=== PATIENT | male | born 1975 | race Caucasian/White ===

== ENCOUNTER 2018-11-08 13:33 | Observation (INO) | payer BC ==
[2018-11-08] MEDS ORDERED: Diltiazem 25 MG/5 ML SDV IVPUSH ONE ×2 (13:41→15:46)
[2018-11-08] MEDS ORDERED: Sodium Chloride 0.9% 1,000 ML IV ONE ×2 (13:41→14:49)
--- NOTE | 2018-11-08 13:45 | EDM.PDOC ---
ED HPI GENERAL MEDICAL PROBLEM - General Chief Complaint: Cardiovascular Problem Stated Complaint: CHEST PAIN Time Seen by Provider: 11/08/18 13:37 Source of Information: Reports: Patient History Limitations: Reports: No Limitations - History of Present Illness INITIAL COMMENTS - FREE TEXT/NARRATIVE: HISTORY AND PHYSICAL: History of present illness: Patient is a 43-year-old male who presents to the emergency room today with complaints of palpitations which started approximately one hour prior to arrival. He states he does have a history of atrial fibrillation and does recall one time that he had to go to the emergency room for IV medication to convert this. He does complain of the palpitation sensation in his chest which she is describing as "I can feel it" but does not state that it is painful. Patient denies any fever, chills, headache, change in vision, syncope or near syncope. Denies any back pain, shortness of breath or cough. Denies any abdominal pain, nausea, vomiting, diarrhea, constipation or dysuria. Has not noted any blood in urine or stool. Patient has been eating and drinking appropriately. Does drink alcohol occasionally but denies any drug or alcohol abuse. Review of systems: As per history of present illness and below otherwise all systems reviewed and negative. Past medical history: As per history of present illness and as reviewed below otherwise noncontributory. Surgical history: As per history of present illness and as reviewed below otherwise noncontributory. Social history: See social history for further information Family history: As per history of present illness and as reviewed below otherwise noncontributory. Physical exam: General: Well-developed and well-nourished 43-year-old male. Alert and oriented. Nontoxic appearing and in no acute distress. HEENT: Atraumatic, normocephalic, pupils equal and reactive bilaterally, negative for conjunctival pallor or scleral icterus, mucous membranes moist, trachea midline. No drooling or trismus noted. No meningeal signs. No hot potato voice noted. Lungs: Clear to auscultation, breath sounds equal bilaterally, chest nontender. Heart: Irregular rate and rhythm, rate of 154. Abdomen: Soft, nondistended, nontender. Negative for masses. Negative for costovertebral tenderness. Pelvis: Stable nontender. Genitourinary: Deferred. Rectal: Deferred. Skin: Intact, warm, dry. No lesions or rashes noted. Extremities: Atraumatic, moves all extremities per self without difficulty or deficits, negative for cords or calf pain. Neurovascular unremarkable. Neuro: Awake, alert, oriented. Cranial nerves II through XII unremarkable. Cerebellum unremarkable. Motor and sensory unremarkable throughout. Exam nonfocal. Notes: Patient's lab work is unremarkable. Pulse rate went from 150 down to 80s to 90. When he is talking or moving pulse rate does go up to 100-110's. He is asymptomatic. Patient's pulse rate remains 90s to 110's after medications and fluids. We'll give a second dose of diltiazem and admit for observation on telemetry. Dr. Corona was consult on this case and he is agreeable. Patient is aware and agreeable to plan of care. He remains pain-free. Diagnostics: CBC, CMP, troponin, EKG, chest x-ray Therapeutics: 20 mg diltiazem, IV fluid, Metoprolol Prescription: None Impression: Atrial Fibrillation Plan: Observation to Med/Surg with telemetry Definitive disposition and diagnosis as appropriate pending reevaluation and review of above. - Related Data Allergies Allergy/AdvReac Type Severity Reaction Status Date / Time No Known Allergies Allergy Verified 11/08/18 13:35 Home Meds: Home Meds Aspirin 81 mg PO DAILY 11/08/18 [History] Febuxostat 40 mg PO DAILY 11/08/18 [History] Metoprolol Succinate 100 mg PO DAILY 11/08/18 [History] Spironolactone 50 mg PO DAILY 11/08/18 [History] amLODIPine [Norvasc] 5 mg PO DAILY 11/08/18 [History] Past Medical History Cardiovascular History: Reports: Afib, Hypertension - Infectious Disease History Infectious Disease History: Reports: Chicken Pox Social & Family History - Family History Family Medical History: Noncontributory - Tobacco Use Smoking Status *Q: Current Every Day Smoker Years of Tobacco use: 10 Packs/Tins Daily: 0.2 - Caffeine Use Caffeine Use: Reports: Coffee - Recreational Drug Use Recreational Drug Use: No ED ROS GENERAL - Review of Systems Review Of Systems: ROS reveals no pertinent complaints other than HPI. ED EXAM, GENERAL - Physical Exam Exam: See Below (See dictation) Course - Vital Signs Last Recorded V/S: Last Vital Signs Temp 97.8 F 11/08/18 13:38 Pulse 92 11/08/18 15:21 Resp 18 11/08/18 14:03 BP 128/94 H 11/08/18 14:54 Pulse Ox 98 11/08/18 14:03 - Orders/Labs/Meds Orders: Active Orders 24 hr Category Date Time Status EKG Documentation Completion [RC] STAT Care 11/08/18 13:37 Active EKG Documentation Completion [RC] STAT Care 11/08/18 14:03 Active Sodium Chloride 0.9% [Normal Saline] 1,000 ml Med 11/08/18 14:49 Active IV STAT Medication Orders Sodium Chloride (Normal Saline) 1,000 mls @ 999 mls/hr IV STAT ONE Stop: 11/08/18 15:49 Last Admin: 11/08/18 14:53 Dose: 999 mls/hr Labs: Laboratory Tests 11/08/18 11/08/18 11/08/18 Range/Units 13:44 13:44 13:45 WBC 9.11 (4.0-11.0) K/uL RBC 4.46 L (4.50-5.90) M/uL Hgb 13.9 (13.0-17.0) g/dL Hct 41.3 (38.0-50.0) % MCV 92.6 (80.0-98.0) fL MCH 31.2 (27.0-32.0) pg MCHC 33.7 (31.0-37.0) g/dL RDW Std Deviation 47.7 (28.0-62.0) fl RDW Coeff of Rena 14 (11.0-15.0) % Plt Count 296 (150-400) K/uL MPV 10.00 (7.40-12.00) fL Neut % (Auto) 60.9 (48.0-80.0) % Lymph % (Auto) 26.2 (16.0-40.0) % [place] % (Auto) 9.5 (0.0-15.0) % Eos % (Auto) 2.9 (0.0-7.0) % Baso % (Auto) 0.5 (0.0-1.5) % Neut # (Auto) 5.5 (1.4-5.7) K/uL Lymph # (Auto) 2.4 (0.6-2.4) K/uL [place] # (Auto) 0.9 H (0.0-0.8) K/uL Eos # (Auto) 0.3 (0.0-0.7) K/uL Baso # (Auto) 0.1 (0.0-0.1) K/uL Nucleated RBC % 0.0 /100WBC Nucleated RBCs # 0 K/uL Sodium 143 (136-148) mmol/L Potassium 3.7 (3.5-5.1) mmol/L Chloride 106 (98-107) mmol/L Carbon Dioxide 26.5 (21.0-32.0) mmol/L BUN 12 (7.0-18.0) mg/dL Creatinine 1.0 (0.8-1.3) mg/dL Est Cr Clr Drug Dosing 99.36 mL/min Estimated GFR (MDRD) > 60.0 ml/min Glucose 103 (74-106) mg/dL Calcium 9.1 (8.5-10.1) mg/dL Total Bilirubin 0.3 (0.2-1.0) mg/dL AST 25 (15-37) IU/L ALT 53 (14-63) IU/L Alkaline Phosphatase 80 (46-116) U/L Troponin I < 0.050 (0.000-0.056) ng/mL Total Protein 7.5 (6.4-8.2) g/dL Albumin 4.0 (3.4-5.0) g/dL Globulin 3.5 (2.6-4.0) g/dL Albumin/Globulin Ratio 1.1 (0.9-1.6) Urine Color YELLOW Urine Appearance CLEAR Urine pH 7.0 (5.0-8.0) Ur Specific [place] <= 1.005 (1.001-1.035) Urine Protein NEGATIVE (NEGATIVE) mg/dL Urine Glucose (UA) NEGATIVE (NEGATIVE) mg/dL Urine Ketones NEGATIVE (NEGATIVE) mg/dL Urine Occult Blood TRACE-INTACT H (NEGATIVE) Urine Nitrite NEGATIVE (NEGATIVE) Urine Bilirubin NEGATIVE (NEGATIVE) Urine Urobilinogen 0.2 (<2.0) EU/dL Ur Leukocyte Esterase NEGATIVE (NEGATIVE) Urine RBC 0-1 (0-2/HPF) Urine WBC 0-1 (0-5/HPF) Ur Epithelial Cells NOT SEEN (NONE-FEW) Amorphous Sediment RARE (NEGATIVE) Urine Bacteria RARE (NEGATIVE) Urine Mucus RARE (NONE-MOD) Meds: Medications Generic Name Dose Route Start Last Admin Trade Name Freq PRN Reason Stop Dose Admin Sodium Chloride 1,000 mls @ 999 mls/hr 11/08/18 14:49 11/08/18 14:53 Normal Saline IV 11/08/18 15:49 999 mls/hr STAT ONE Administration Discontinued Medications Generic Name Dose Route Start Last Admin Trade Name Freq PRN Reason Stop Dose Admin Diltiazem HCl 20 mg 11/08/18 13:41 11/08/18 13:49 Diltiazem IVPUSH 11/08/18 13:42 20 mg ONETIME ONE Administration Sodium Chloride 1,000 mls @ 999 mls/hr 11/08/18 13:41 11/08/18 13:48 Normal Saline IV 11/08/18 14:41 999 mls/hr STAT ONE Administration Metoprolol Succinate 50 mg 11/08/18 14:48 11/08/18 14:54 Toprol Xl PO 11/08/18 14:49 50 mg ONETIME ONE Administration Departure - Departure Time of Disposition: 15:44 Disposition: Refer to Observation Clinical Impression: Atrial fibrillation Qualifiers: Atrial fibrillation type: unspecified Qualified Code(s): I48.91 - Unspecified atrial fibrillation Referrals: PCP,Unknown [Primary Care Provider] - Forms: ED Department Discharge - My Orders Last 24 Hours: My Active Orders 11/08/18 13:37 EKG Documentation Completion [RC] STAT 11/08/18 14:03 EKG Documentation Completion [RC] STAT 11/08/18 14:49 Sodium Chloride 0.9% [Normal Saline] 1,000 ml IV STAT - Assessment/Plan Last 24 Hours: My Active Orders 11/08/18 13:37 EKG Documentation Completion [RC] STAT 11/08/18 14:03 EKG Documentation Completion [RC] STAT 11/08/18 14:49 Sodium Chloride 0.9% [Normal Saline] 1,000 ml IV STAT
[2018-11-08 14:22] LABS: BLOOD UREA NITROGEN,BUN 12 mg/dL (7.0-18.0); CARBON DIOXIDE,CO2 26.5 mmol/L (21.0-32.0); CHLORIDE,CL 106 mmol/L (98-107); GLUCOSE RANDOM 103 mg/dL (74-106); POTASSIUM,K 3.7 mmol/L (3.5-5.1); SODIUM,NA 143 mmol/L (136-148)
--- NOTE | 2018-11-08 14:34 | CR ---
INDICATION: CHEST PAIN TECHNIQUE: Chest 1 view. COMPARISON: None. FINDINGS: Cardiovascular and mediastinum: Heart size and vasculature are normal in caliber and appearance. Mediastinum is within normal limits. Lungs and pleural space: Lungs are clear. No sign of infiltrate or mass. No sign of pleural effusion. No pneumothorax. Bones and soft tissues: No significant findings. IMPRESSION: Unremarkable chest. Dictated by: Trenton Ghosh MD @ 11/08/2018 14:32:59 (Electronically Signed)
[2018-11-08] MEDS ORDERED: Metoprolol Succinate 50 MG Tab.ER PO ONE (14:48)
--- NOTE | 2018-11-08 16:31 | PCM.HP.2 ---
<Lenora Angulo - Last Filed: 11/08/18 17:43> H&P History of Present Illness - General Date of Service: 11/08/18 Admit Problem/Dx: Admission Diagnosis/Problem Admission Diagnosis/Problem Atrial fibrillation - History of Present Illness Initial Comments - Free Text/Narative: The patient is a 43-year-old male who presented to the ER today with palpitations. He reports he has a history of A. fib. He was first diagnosed with A. fib in 2018. He reports he went to the ER, they gave him a dose of something, and then he returned to normal sinus rhythm. The symptoms started today when he was at work. He was sitting, running machine, not doing anything physical. He denies fever/chills, headache, vision changes, chest pain, shortness of breath, abdominal pain, nausea, vomiting, recent illness, drug use , recent alcohol use and has not changed his caffeine consumption. he reports he was 1 large cup of coffee in the morning. He reports he's taking his medications as prescribed, hasn't missed any doses. He follows with the PCP in [place]. In the ER, labs showed no leukocytosis, anemia, CMP was within normal limits and initial negative troponin. His UA showed no signs of infection. A chest x- ray showed no acute cardiopulmonary process. EKG showed A. fib with a heart rate of 154. Repeat EKG after medication administration showed A. fib with heart rate of 99. He was given 2 doses of diltiazem IV in the ER and one dose of oral metoprolol. He was started on IV fluids. - Related Data Allergies/Adverse Reactions: Allergies Allergy/AdvReac Type Severity Reaction Status Date / Time No Known Allergies Allergy Verified 11/08/18 16:23 Home Medications: Home Meds Aspirin 81 mg PO DAILY 11/08/18 [History] Febuxostat 40 mg PO DAILY 11/08/18 [History] Metoprolol Succinate 100 mg PO DAILY 11/08/18 [History] Spironolactone 50 mg PO DAILY 11/08/18 [History] amLODIPine [Norvasc] 5 mg PO DAILY 11/08/18 [History] Past Medical History HEENT History: Reports: None Cardiovascular History: Reports: Afib, Hypertension Respiratory History: Reports: None Gastrointestinal History: Reports: None Genitourinary History: Reports: None Musculoskeletal History: Reports: Gout Neurological History: Reports: None Psychiatric History: Reports: None Endocrine/Metabolic History: Reports: None Hematologic History: Reports: None Immunologic History: Reports: None Oncologic (Cancer) History: Reports: None Dermatologic History: Reports: None - Infectious Disease History Infectious Disease History: Reports: Chicken Pox Social & Family History - Family History Family Medical History: Noncontributory - Tobacco Use Smoking Status *Q: Current Every Day Smoker Years of Tobacco use: 10 Packs/Tins Daily: 0.2 - Caffeine Use Caffeine Use: Reports: Coffee - Recreational Drug Use Recreational Drug Use: No H&P Review of Systems - Review of Systems: Review Of Systems: See Below General: Reports: No Symptoms HEENT: Reports: No Symptoms Pulmonary: Reports: No Symptoms Cardiovascular: Reports: Palpitations. Denies: Chest Pain, Syncope, Blood Pressure Problem Gastrointestinal: Reports: No Symptoms Genitourinary: Reports: No Symptoms Musculoskeletal: Reports: No Symptoms Skin: Reports: No Symptoms Psychiatric: Reports: No Symptoms Neurological: Reports: No Symptoms Hematologic/Lymphatic: Reports: No Symptoms Immunologic: Reports: No Symptoms Exam - Exam Exam: See Below - Vital Signs Vital Signs: Last Vital Signs Temp 97.8 F 11/08/18 13:38 Pulse 102 H 11/08/18 15:55 Resp 16 11/08/18 15:55 BP 133/87 11/08/18 15:55 Pulse Ox 98 11/08/18 15:55 Weight: 90.718 kg - Exam General: Alert, Oriented, Cooperative HEENT: Conjunctiva Clear, EOMI, Mucosa Moist & [place], Posterior Pharynx Clear, Pupils Equal, Pupils Reactive Neck: Supple, Trachea Midline Lungs: Clear to Auscultation, Normal Respiratory Effort Cardiovascular: Irregular Rhythm GI/Abdominal Exam: Normal Bowel Sounds, Soft, Non-Tender, No Distention Extremities: No Pedal Edema Skin: Warm, Dry, Intact Neuro Extensive - Mental Status: Alert, Oriented x3 Psychiatric: Alert, Normal Affect, Normal Mood - Patient Data Lab Results Last 24 hrs: Laboratory Results - last 24 hr 11/08/18 11/08/18 11/08/18 Range/Units 13:44 13:44 13:45 WBC 9.11 (4.0-11.0) K/uL RBC 4.46 L (4.50-5.90) M/uL Hgb 13.9 (13.0-17.0) g/dL Hct 41.3 (38.0-50.0) % MCV 92.6 (80.0-98.0) fL MCH 31.2 (27.0-32.0) pg MCHC 33.7 (31.0-37.0) g/dL RDW Std Deviation 47.7 (28.0-62.0) fl RDW Coeff of Rena 14 (11.0-15.0) % Plt Count 296 (150-400) K/uL MPV 10.00 (7.40-12.00) fL Neut % (Auto) 60.9 (48.0-80.0) % Lymph % (Auto) 26.2 (16.0-40.0) % [place] % (Auto) 9.5 (0.0-15.0) % Eos % (Auto) 2.9 (0.0-7.0) % Baso % (Auto) 0.5 (0.0-1.5) % Neut # (Auto) 5.5 (1.4-5.7) K/uL Lymph # (Auto) 2.4 (0.6-2.4) K/uL [place] # (Auto) 0.9 H (0.0-0.8) K/uL Eos # (Auto) 0.3 (0.0-0.7) K/uL Baso # (Auto) 0.1 (0.0-0.1) K/uL Nucleated RBC % 0.0 /100WBC Nucleated RBCs # 0 K/uL Sodium 143 (136-148) mmol/L Potassium 3.7 (3.5-5.1) mmol/L Chloride 106 (98-107) mmol/L Carbon Dioxide 26.5 (21.0-32.0) mmol/L BUN 12 (7.0-18.0) mg/dL Creatinine 1.0 (0.8-1.3) mg/dL Est Cr Clr Drug Dosing 99.36 mL/min Estimated GFR (MDRD) > 60.0 ml/min Glucose 103 (74-106) mg/dL Calcium 9.1 (8.5-10.1) mg/dL Total Bilirubin 0.3 (0.2-1.0) mg/dL AST 25 (15-37) IU/L ALT 53 (14-63) IU/L Alkaline Phosphatase 80 (46-116) U/L Troponin I < 0.050 (0.000-0.056) ng/mL Total Protein 7.5 (6.4-8.2) g/dL Albumin 4.0 (3.4-5.0) g/dL Globulin 3.5 (2.6-4.0) g/dL Albumin/Globulin Ratio 1.1 (0.9-1.6) Urine Color YELLOW Urine Appearance CLEAR Urine pH 7.0 (5.0-8.0) Ur Specific [place] <= 1.005 (1.001-1.035) Urine Protein NEGATIVE (NEGATIVE) mg/dL Urine Glucose (UA) NEGATIVE (NEGATIVE) mg/dL Urine Ketones NEGATIVE (NEGATIVE) mg/dL Urine Occult Blood TRACE-INTACT H (NEGATIVE) Urine Nitrite NEGATIVE (NEGATIVE) Urine Bilirubin NEGATIVE (NEGATIVE) Urine Urobilinogen 0.2 (<2.0) EU/dL Ur Leukocyte Esterase NEGATIVE (NEGATIVE) Urine RBC 0-1 (0-2/HPF) Urine WBC 0-1 (0-5/HPF) Ur Epithelial Cells NOT SEEN (NONE-FEW) Amorphous Sediment RARE (NEGATIVE) Urine Bacteria RARE (NEGATIVE) Urine Mucus RARE (NONE-MOD) Result Diagrams: 11/08/18 13:44 11/08/18 13:44 - Problem List (1) HTN (hypertension) SNOMED Code(s): 42075245 ICD Code: I10 - ESSENTIAL (PRIMARY) HYPERTENSION Status: Chronic Current Visit: Yes (2) Gout SNOMED Code(s): 60692367 ICD Code: M10.9 - GOUT, UNSPECIFIED Status: Chronic Current Visit: Yes (3) Atrial fibrillation SNOMED Code(s): 09179390 ICD Code: I48.91 - UNSPECIFIED ATRIAL FIBRILLATION Status: Acute Current Visit: Yes Qualifiers: Atrial fibrillation type: unspecified Qualified Code(s): I48.91 - Unspecified atrial fibrillation Problem List Initiated/Reviewed/Updated: Yes Orders Last 24hrs: Active Orders 24 hr Category Date Time Status Admission Status [Patient Status] [ADT] Stat ADT 11/08/18 15:47 Active Telemetry Monitoring [Cardiac Monitoring] [RC] . Care 11/08/18 16:25 Ordered DIRECTED Assessment/Plan Comment:: 1. Admit for observation 2. Code status- Full 3. Vitals per routine 4. I/Os per routine 5. Diet- Regular 6. DVT prophylaxis with Eliquis 7. Paroxysmal Afib- will continue on home metoprolol dose, 100 bid, consider adjusting dose or adding new medication tomorrow if rate not under control. Will monitor on telemetry and trend troponins. Will have prn Diltiazem for HR > 120. CHADSVASC of 1, recommended anticoagulation with something stronger than aspirin. Discussed warfarin vs new agent like Eliquis. Discussed risks/ benefits of each. Patient would like to try Eliquis. 8. Chronic conditions- HTN/gout- continue home meds. <Reyes Corona - Last Filed: 11/08/18 17:46> H&P History of Present Illness - General Admit Problem/Dx: Admission Diagnosis/Problem Admission Diagnosis/Problem Atrial fibrillation I have seen and examined the patient independently of veterinary medical officer, Dr. Kev DO. I have reviewed and agree with the plan of care as outlined for this patient by her. I have discussed the case with her. Please see orders. Exam - Vital Signs Vital Signs: Last Vital Signs Temp 36.4 C 11/08/18 16:35 Pulse 87 11/08/18 16:35 Resp 16 11/08/18 16:35 BP 143/93 H 11/08/18 16:35 Pulse Ox 99 11/08/18 16:35 - Patient Data Lab Results Last 24 hrs: Laboratory Results - last 24 hr 11/08/18 11/08/18 11/08/18 Range/Units 13:44 13:44 13:45 WBC 9.11 (4.0-11.0) K/uL RBC 4.46 L (4.50-5.90) M/uL Hgb 13.9 (13.0-17.0) g/dL Hct 41.3 (38.0-50.0) % MCV 92.6 (80.0-98.0) fL MCH 31.2 (27.0-32.0) pg MCHC 33.7 (31.0-37.0) g/dL RDW Std Deviation 47.7 (28.0-62.0) fl RDW Coeff of [place] 14 (11.0-15.0) % Plt Count 296 (150-400) K/uL MPV 10.00 (7.40-12.00) fL Neut % (Auto) 60.9 (48.0-80.0) % Lymph % (Auto) 26.2 (16.0-40.0) % [place] % (Auto) 9.5 (0.0-15.0) % Eos % (Auto) 2.9 (0.0-7.0) % Baso % (Auto) 0.5 (0.0-1.5) % Neut # (Auto) 5.5 (1.4-5.7) K/uL Lymph # (Auto) 2.4 (0.6-2.4) K/uL [place] # (Auto) 0.9 H (0.0-0.8) K/uL Eos # (Auto) 0.3 (0.0-0.7) K/uL Baso # (Auto) 0.1 (0.0-0.1) K/uL Nucleated RBC % 0.0 /100WBC Nucleated RBCs # 0 K/uL Sodium 143 (136-148) mmol/L Potassium 3.7 (3.5-5.1) mmol/L Chloride 106 (98-107) mmol/L Carbon Dioxide 26.5 (21.0-32.0) mmol/L BUN 12 (7.0-18.0) mg/dL Creatinine 1.0 (0.8-1.3) mg/dL Est Cr Clr Drug Dosing 99.36 mL/min Estimated GFR (MDRD) > 60.0 ml/min Glucose 103 (74-106) mg/dL Calcium 9.1 (8.5-10.1) mg/dL Total Bilirubin 0.3 (0.2-1.0) mg/dL AST 25 (15-37) IU/L ALT 53 (14-63) IU/L Alkaline Phosphatase 80 (46-116) U/L Troponin I < 0.050 (0.000-0.056) ng/mL Total Protein 7.5 (6.4-8.2) g/dL Albumin 4.0 (3.4-5.0) g/dL Globulin 3.5 (2.6-4.0) g/dL Albumin/Globulin Ratio 1.1 (0.9-1.6) Urine Color YELLOW Urine Appearance CLEAR Urine pH 7.0 (5.0-8.0) Ur Specific [place] <= 1.005 (1.001-1.035) Urine Protein NEGATIVE (NEGATIVE) mg/dL Urine Glucose (UA) NEGATIVE (NEGATIVE) mg/dL Urine Ketones NEGATIVE (NEGATIVE) mg/dL Urine Occult Blood TRACE-INTACT H (NEGATIVE) Urine Nitrite NEGATIVE (NEGATIVE) Urine Bilirubin NEGATIVE (NEGATIVE) Urine Urobilinogen 0.2 (<2.0) EU/dL Ur Leukocyte Esterase NEGATIVE (NEGATIVE) Urine RBC 0-1 (0-2/HPF) Urine WBC 0-1 (0-5/HPF) Ur Epithelial Cells NOT SEEN (NONE-FEW) Amorphous Sediment RARE (NEGATIVE) Urine Bacteria RARE (NEGATIVE) Urine Mucus RARE (NONE-MOD) Result Diagrams: 11/08/18 13:44 11/08/18 13:44 Orders Last 24hrs: Active Orders 24 hr Category Date Time Status Admission Status [Patient Status] [ADT] Stat ADT 11/08/18 15:47 Active Cardiac Monitoring [RC] . DIRECTED Care 11/08/18 16:35 Active Intake and Output [RC] Q12H Care 11/08/18 16:35 Active Telemetry Monitoring [Cardiac Monitoring] [RC] . Care 11/08/18 16:25 Active DIRECTED Vital Signs [RC] Q4H Care 11/08/18 16:35 Active Heart Healthy Diet [DIET] Diet 11/09/18 Breakfast Active BASIC METABOLIC PANEL,BMP [CHEM] AM Lab 11/09/18 05:11 Ordered CBC WITH AUTO DIFF [HEME] AM Lab 11/09/18 05:11 Ordered TROPONIN I [CHEM] AM Lab 11/09/18 05:11 Ordered TROPONIN I [CHEM] Routine Lab 11/08/18 21:30 Ordered Acetaminophen [Tylenol] Med 11/08/18 16:35 Active 650 mg PO Q4H PRN Apixaban [Eliquis] Med 11/08/18 21:00 Active 5 mg PO BID Diltiazem Med 11/08/18 16:35 Active 20 mg IVPUSH Q4HR PRN Metoprolol Succinate [Toprol XL] Med 11/08/18 21:00 Active 100 mg PO BID Ondansetron [Zofran] Med 11/08/18 16:35 Active 4 mg IVPUSH Q4H PRN Patient's Own Medication [Ptom] Med 11/09/18 09:00 Active 1 each PO DAILY Spironolactone [Aldactone] Med 11/09/18 09:00 Active 50 mg PO DAILY amLODIPine [Norvasc] Med 11/09/18 09:00 Active 5 mg PO DAILY Resuscitation Status Routine Resus Stat 11/08/18 16:35 Ordered Medication Orders Acetaminophen (Tylenol) 650 mg PO Q4H PRN PRN Reason: Pain/Fever Amlodipine Besylate (Norvasc) 5 mg PO DAILY SANDIE Apixaban (Eliquis) 5 mg PO BID SANDIE Diltiazem HCl (Diltiazem) 20 mg IVPUSH Q4HR PRN PRN Reason: Arrhythmia Metoprolol Succinate (Toprol Xl) 100 mg PO BID SANDIE Ondansetron HCl (Zofran) 4 mg IVPUSH Q4H PRN PRN Reason: Nausea/Vomiting Febuxostat 40 Mg 1 each PO DAILY SANDIE Spironolactone (Aldactone) 50 mg PO DAILY SANDIE
[2018-11-08] MEDS ORDERED: Acetaminophen 325 MG Tab PO PRN (16:35)
[2018-11-08] MEDS ORDERED: Diltiazem 25 MG/5 ML SDV IVPUSH PRN (16:35)
[2018-11-08] MEDS ORDERED: Ondansetron 4 MG/2 ML SDV IVPUSH PRN (16:35)
[2018-11-08] MEDS: Metoprolol Succinate 100 MG Tab.ER PO SCH (20:40)
[2018-11-08] MEDS: Apixaban 5 MG Tab PO SCH (20:40)
[2018-11-09 06:54] LABS: BLOOD UREA NITROGEN,BUN 8 mg/dL (7.0-18.0); CARBON DIOXIDE,CO2 25.3 mmol/L (21.0-32.0); CHLORIDE,CL 107 mmol/L (98-107); GLUCOSE RANDOM 96 mg/dL (74-106); POTASSIUM,K 3.9 mmol/L (3.5-5.1); SODIUM,NA 142 mmol/L (136-148)
[2018-11-09] MEDS: Metoprolol Succinate 100 MG Tab.ER PO SCH (08:28)
[2018-11-09] MEDS: Apixaban 5 MG Tab PO SCH (08:29)
--- NOTE | 2018-11-09 08:55 | PCM.DCSUM1 ---
<Lenora Angulo - Last Filed: 11/09/18 08:55> Discharge Summary - Hospital Course Free Text/Narrative:: Admission Date: 11/08/18 Discharge Date: 11/09/18 Admission Diagnosis: 1. Afib 2. Chronic conditions- HTN, gout Discharge Diagnosis: 1. Afib- rate controlled/anticoagulated 2. Chronic conditions- HTN, gout Procedures: None Consults: None Hospital Course: The patient is a 43-year-old male who presented to the ER yesterday with palpitations. He had previous history of A. fib that converted with medication to sinus rhythm. In the ER, he was in A. fib with heart rate of 154. They ended up giving him 2 doses of IV Diltiazem and one dose of oral metoprolol. Further workup showed no leukocytosis, anemia, electrolyte derangements and initial negative troponin was negative. His UA showed no signs of infection. A chest x-ray showed no acute cardiopulmonary process. He was admitted to the medical surgical floor where he was monitored on telemetry and continued on his home dose metoprolol. He remained in A. fib but was rate controlled in the 70s and 80s. We had a discussion about anticoagulation as he was only on aspirin before. We discussed risks, benefits of warfarin versus a novel agent. The patient decided on Eliquis and he was started on the medication while admitted. He was continued on his home meds for his hypertension and gout. By day of discharge his symptoms had improved, his A. fib was rate controlled. He stated he felt fine going home. Disposition: Home Discharge Condition: vitals stable, tolerating oral diet, ambulating without difficulty, symptom improvement Discharge Instructions: heart healthy diet as tolerated, activity as tolerated, take medications as prescribed. Symptoms to report to physician include fever/ chills, chest pain, shortness of breath, palpitations, abdominal pain, erythema , drainage/discharge, or not improving as expected. Discharge Medications: Febuxostat 40 mg PO DAILY Metoprolol Succinate 100 mg PO DAILY Spironolactone 50 mg PO DAILY amLODIPine [Norvasc] 5 mg PO DAILY Apixaban [Eliquis] 5 mg PO BID Follow-up: PCP and cardiology - Discharge Data Discharge Date: 11/09/18 Discharge Disposition: Home, Self-Care 01 Condition: Fair - Referral to Home Health Primary Care Physician: PCP Unknown - Discharge Diagnosis/Problem(s) (1) HTN (hypertension) SNOMED Code(s): 34097367 ICD Code: I10 - ESSENTIAL (PRIMARY) HYPERTENSION Status: Chronic Current Visit: Yes (2) Gout SNOMED Code(s): 64488917 ICD Code: M10.9 - GOUT, UNSPECIFIED Status: Chronic Current Visit: Yes (3) Atrial fibrillation SNOMED Code(s): 66032914 ICD Code: I48.91 - UNSPECIFIED ATRIAL FIBRILLATION Status: Acute Current Visit: Yes Qualifiers: Atrial fibrillation type: unspecified Qualified Code(s): I48.91 - Unspecified atrial fibrillation - Patient Instructions Diet: Heart Healthy Diet Activity: As Tolerated Driving: May Drive Today Showering/Bathing: May Shower Notify Provider of: Fever, Increased Pain, Swelling and Redness, Drainage, Nausea and/or Vomiting Other/Special Instructions: Additional symptoms include chest pain, shortness of breath, palpitations, or abdominal pain. - Discharge Plan *PRESCRIPTION DRUG MONITORING PROGRAM REVIEWED*: No *COPY OF PRESCRIPTION DRUG MONITORING REPORT IN PATIENT [facility]: No Prescriptions/Med Rec: Apixaban [Eliquis] 5 mg PO BID 30 Days #60 tablet Home Medications: Home Meds Febuxostat 40 mg PO DAILY 11/08/18 [History] Metoprolol Succinate 100 mg PO DAILY 11/08/18 [History] Spironolactone 50 mg PO DAILY 11/08/18 [History] amLODIPine [Norvasc] 5 mg PO DAILY 11/08/18 [History] Apixaban [Eliquis] 5 mg PO BID 30 Days #60 tablet 11/09/18 [Rx] Patient Handouts: Apixaban oral tablets, Atrial Fibrillation, [id number] Referrals: Lonnie Smith MD [Physician] - 11/30/18 11:30 am Mckayla Perez MD [Resident] - 11/17/18 3:40 pm - Discharge Summary/Plan Comment DC Time >30 min.: No - Patient Data Vitals - Most Recent: Last Vital Signs Temp 97.7 F 11/09/18 07:37 Pulse 87 11/09/18 08:28 Resp 16 11/09/18 07:37 BP 134/96 H 11/09/18 08:30 Pulse Ox 97 11/09/18 07:37 Weight - Most Recent: 90.718 kg I&O - Last 24 hours: Intake & Output 11/08/18 11/09/18 11/09/18 22:59 06:59 14:59 Intake Total 900 Balance 900 Lab Results - Last 24 hrs: Laboratory Results - last 24 hr 11/08/18 11/08/18 11/08/18 Range/Units 13:44 13:44 13:45 WBC 9.11 (4.0-11.0) K/uL RBC 4.46 L (4.50-5.90) M/uL Hgb 13.9 (13.0-17.0) g/dL Hct 41.3 (38.0-50.0) % MCV 92.6 (80.0-98.0) fL MCH 31.2 (27.0-32.0) pg MCHC 33.7 (31.0-37.0) g/dL RDW Std Deviation 47.7 (28.0-62.0) fl RDW Coeff of Rena 14 (11.0-15.0) % Plt Count 296 (150-400) K/uL MPV 10.00 (7.40-12.00) fL Neut % (Auto) 60.9 (48.0-80.0) % Lymph % (Auto) 26.2 (16.0-40.0) % Nye % (Auto) 9.5 (0.0-15.0) % Eos % (Auto) 2.9 (0.0-7.0) % Baso % (Auto) 0.5 (0.0-1.5) % Neut # (Auto) 5.5 (1.4-5.7) K/uL Lymph # (Auto) 2.4 (0.6-2.4) K/uL Nye # (Auto) 0.9 H (0.0-0.8) K/uL Eos # (Auto) 0.3 (0.0-0.7) K/uL Baso # (Auto) 0.1 (0.0-0.1) K/uL Nucleated RBC % 0.0 /100WBC Nucleated RBCs # 0 K/uL Sodium 143 (136-148) mmol/L Potassium 3.7 (3.5-5.1) mmol/L Chloride 106 (98-107) mmol/L Carbon Dioxide 26.5 (21.0-32.0) mmol/L BUN 12 (7.0-18.0) mg/dL Creatinine 1.0 (0.8-1.3) mg/dL Est Cr Clr Drug Dosing 99.36 mL/min Estimated GFR (MDRD) > 60.0 ml/min Glucose 103 (74-106) mg/dL Calcium 9.1 (8.5-10.1) mg/dL Total Bilirubin 0.3 (0.2-1.0) mg/dL AST 25 (15-37) IU/L ALT 53 (14-63) IU/L Alkaline Phosphatase 80 (46-116) U/L Troponin I < 0.050 (0.000-0.056) ng/mL Total Protein 7.5 (6.4-8.2) g/dL Albumin 4.0 (3.4-5.0) g/dL Globulin 3.5 (2.6-4.0) g/dL Albumin/Globulin Ratio 1.1 (0.9-1.6) Urine Color YELLOW Urine Appearance CLEAR Urine pH 7.0 (5.0-8.0) Ur Specific [facility] <= 1.005 (1.001-1.035) Urine Protein NEGATIVE (NEGATIVE) mg/dL Urine Glucose (UA) NEGATIVE (NEGATIVE) mg/dL Urine Ketones NEGATIVE (NEGATIVE) mg/dL Urine Occult Blood TRACE-INTACT H (NEGATIVE) Urine Nitrite NEGATIVE (NEGATIVE) Urine Bilirubin NEGATIVE (NEGATIVE) Urine Urobilinogen 0.2 (<2.0) EU/dL Ur Leukocyte Esterase NEGATIVE (NEGATIVE) Urine RBC 0-1 (0-2/HPF) Urine WBC 0-1 (0-5/HPF) Ur Epithelial Cells NOT SEEN (NONE-FEW) Amorphous Sediment RARE (NEGATIVE) Urine Bacteria RARE (NEGATIVE) Urine Mucus RARE (NONE-MOD) 11/08/18 11/09/18 11/09/18 Range/Units 21:38 05:45 05:45 WBC 6.96 (4.0-11.0) K/uL RBC 4.53 (4.50-5.90) M/uL Hgb 14.0 (13.0-17.0) g/dL Hct 42.4 (38.0-50.0) % MCV 93.6 (80.0-98.0) fL MCH 30.9 (27.0-32.0) pg MCHC 33.0 (31.0-37.0) g/dL RDW Std Deviation 48.6 (28.0-62.0) fl RDW Coeff of Rena 14 (11.0-15.0) % Plt Count 300 (150-400) K/uL MPV 10.10 (7.40-12.00) fL Neut % (Auto) 59.3 (48.0-80.0) % Lymph % (Auto) 27.7 (16.0-40.0) % Nye % (Auto) 8.9 (0.0-15.0) % Eos % (Auto) 3.7 (0.0-7.0) % Baso % (Auto) 0.4 (0.0-1.5) % Neut # (Auto) 4.1 (1.4-5.7) K/uL Lymph # (Auto) 1.9 (0.6-2.4) K/uL Nye # (Auto) 0.6 (0.0-0.8) K/uL Eos # (Auto) 0.3 (0.0-0.7) K/uL Baso # (Auto) 0.0 (0.0-0.1) K/uL Nucleated RBC % 0.0 /100WBC Nucleated RBCs # 0 K/uL Sodium 142 (136-148) mmol/L Potassium 3.9 (3.5-5.1) mmol/L Chloride 107 (98-107) mmol/L Carbon Dioxide 25.3 (21.0-32.0) mmol/L BUN 8 (7.0-18.0) mg/dL Creatinine 0.9 (0.8-1.3) mg/dL Est Cr Clr Drug Dosing 110.67 mL/min Estimated GFR (MDRD) > 60.0 ml/min Glucose 96 (74-106) mg/dL Calcium 8.6 (8.5-10.1) mg/dL Total Bilirubin (0.2-1.0) mg/dL AST (15-37) IU/L ALT (14-63) IU/L Alkaline Phosphatase (46-116) U/L Troponin I < 0.050 < 0.050 (0.000-0.056) ng/mL Total Protein (6.4-8.2) g/dL Albumin (3.4-5.0) g/dL Globulin (2.6-4.0) g/dL Albumin/Globulin Ratio (0.9-1.6) Urine Color Urine Appearance Urine pH (5.0-8.0) Ur Specific [facility] (1.001-1.035) Urine Protein (NEGATIVE) mg/dL Urine Glucose (UA) (NEGATIVE) mg/dL Urine Ketones (NEGATIVE) mg/dL Urine Occult Blood (NEGATIVE) Urine Nitrite (NEGATIVE) Urine Bilirubin (NEGATIVE) Urine Urobilinogen (<2.0) EU/dL Ur Leukocyte Esterase (NEGATIVE) Urine RBC (0-2/HPF) Urine WBC (0-5/HPF) Ur Epithelial Cells (NONE-FEW) Amorphous Sediment (NEGATIVE) Urine Bacteria (NEGATIVE) Urine Mucus (NONE-MOD) Med Orders - Current: Current Medications Acetaminophen (Tylenol) 650 mg PO Q4H PRN PRN Reason: Pain/Fever Amlodipine Besylate (Norvasc) 5 mg PO DAILY [facility] Last Admin: 11/09/18 08:30 Dose: 5 mg Apixaban (Eliquis) 5 mg PO BID [facility] Last Admin: 11/09/18 08:29 Dose: 5 mg Diltiazem HCl (Diltiazem) 20 mg IVPUSH Q4HR PRN PRN Reason: Arrhythmia Metoprolol Succinate (Toprol Xl) 100 mg PO BID [facility] Last Admin: 11/09/18 08:28 Dose: 100 mg Ondansetron HCl (Zofran) 4 mg IVPUSH Q4H PRN PRN Reason: Nausea/Vomiting Febuxostat 40 Mg 1 each PO DAILY [facility] Last Admin: 11/09/18 08:33 Dose: 1 each Spironolactone (Aldactone) 50 mg PO DAILY [facility] Last Admin: 11/09/18 08:29 Dose: 50 mg Discontinued Medications Aspirin (Aspirin) 81 mg PO DAILY [facility] Diltiazem HCl (Diltiazem) 20 mg IVPUSH ONETIME ONE Stop: 11/08/18 13:42 Last Admin: 11/08/18 13:49 Dose: 20 mg Diltiazem HCl (Diltiazem) 20 mg IVPUSH ONETIME ONE Stop: 11/08/18 15:47 Last Admin: 11/08/18 15:55 Dose: 20 mg Sodium Chloride (Normal Saline) 1,000 mls @ 999 mls/hr IV STAT ONE Stop: 11/08/18 14:41 Last Admin: 11/08/18 13:48 Dose: 999 mls/hr Sodium Chloride (Normal Saline) 1,000 mls @ 999 mls/hr IV STAT ONE Stop: 11/08/18 15:49 Last Admin: 11/08/18 14:53 Dose: 999 mls/hr Metoprolol Succinate (Toprol Xl) 50 mg PO ONETIME ONE Stop: 11/08/18 14:49 Last Admin: 11/08/18 14:54 Dose: 50 mg Metoprolol Succinate (Toprol Xl) 100 mg PO DAILY [facility]IE <Reyes Corona - Last Filed: 11/09/18 09:45> Discharge Summary - Hospital Course Free Text/Narrative:: I have seen and examined the patient independently of medical data analyst, Dr. Kev DO. I have reviewed and agree with the plan of care as outlined for this patient by her. I have discussed the case with her. Please see orders. - Referral to Home Health Primary Care Physician: PCP Unknown - Patient Data Vitals - Most Recent: Last Vital Signs Temp 36.5 C 11/09/18 07:37 Pulse 87 11/09/18 08:28 Resp 16 11/09/18 07:37 BP 134/96 H 11/09/18 08:30 Pulse Ox 97 11/09/18 07:37 I&O - Last 24 hours: Intake & Output 11/08/18 11/09/18 11/09/18 22:59 06:59 14:59 Intake Total 900 Balance 900 Lab Results - Last 24 hrs: Laboratory Results - last 24 hr 11/08/18 11/08/18 11/08/18 Range/Units 13:44 13:44 13:45 WBC 9.11 (4.0-11.0) K/uL RBC 4.46 L (4.50-5.90) M/uL Hgb 13.9 (13.0-17.0) g/dL Hct 41.3 (38.0-50.0) % MCV 92.6 (80.0-98.0) fL MCH 31.2 (27.0-32.0) pg MCHC 33.7 (31.0-37.0) g/dL RDW Std Deviation 47.7 (28.0-62.0) fl RDW Coeff of Rena 14 (11.0-15.0) % Plt Count 296 (150-400) K/uL MPV 10.00 (7.40-12.00) fL Neut % (Auto) 60.9 (48.0-80.0) % Lymph % (Auto) 26.2 (16.0-40.0) % Nye % (Auto) 9.5 (0.0-15.0) % Eos % (Auto) 2.9 (0.0-7.0) % Baso % (Auto) 0.5 (0.0-1.5) % Neut # (Auto) 5.5 (1.4-5.7) K/uL Lymph # (Auto) 2.4 (0.6-2.4) K/uL Nye # (Auto) 0.9 H (0.0-0.8) K/uL Eos # (Auto) 0.3 (0.0-0.7) K/uL Baso # (Auto) 0.1 (0.0-0.1) K/uL Nucleated RBC % 0.0 /100WBC Nucleated RBCs # 0 K/uL Sodium 143 (136-148) mmol/L Potassium 3.7 (3.5-5.1) mmol/L Chloride 106 (98-107) mmol/L Carbon Dioxide 26.5 (21.0-32.0) mmol/L BUN 12 (7.0-18.0) mg/dL Creatinine 1.0 (0.8-1.3) mg/dL Est Cr Clr Drug Dosing 99.36 mL/min Estimated GFR (MDRD) > 60.0 ml/min Glucose 103 (74-106) mg/dL Calcium 9.1 (8.5-10.1) mg/dL Total Bilirubin 0.3 (0.2-1.0) mg/dL AST 25 (15-37) IU/L ALT 53 (14-63) IU/L Alkaline Phosphatase 80 (46-116) U/L Troponin I < 0.050 (0.000-0.056) ng/mL Total Protein 7.5 (6.4-8.2) g/dL Albumin 4.0 (3.4-5.0) g/dL Globulin 3.5 (2.6-4.0) g/dL Albumin/Globulin Ratio 1.1 (0.9-1.6) Urine Color YELLOW Urine Appearance CLEAR Urine pH 7.0 (5.0-8.0) Ur Specific [facility] <= 1.005 (1.001-1.035) Urine Protein NEGATIVE (NEGATIVE) mg/dL Urine Glucose (UA) NEGATIVE (NEGATIVE) mg/dL Urine Ketones NEGATIVE (NEGATIVE) mg/dL Urine Occult Blood TRACE-INTACT H (NEGATIVE) Urine Nitrite NEGATIVE (NEGATIVE) Urine Bilirubin NEGATIVE (NEGATIVE) Urine Urobilinogen 0.2 (<2.0) EU/dL Ur Leukocyte Esterase NEGATIVE (NEGATIVE) Urine RBC 0-1 (0-2/HPF) Urine WBC 0-1 (0-5/HPF) Ur Epithelial Cells NOT SEEN (NONE-FEW) Amorphous Sediment RARE (NEGATIVE) Urine Bacteria RARE (NEGATIVE) Urine Mucus RARE (NONE-MOD) 11/08/18 11/09/18 11/09/18 Range/Units 21:38 05:45 05:45 WBC 6.96 (4.0-11.0) K/uL RBC 4.53 (4.50-5.90) M/uL Hgb 14.0 (13.0-17.0) g/dL Hct 42.4 (38.0-50.0) % MCV 93.6 (80.0-98.0) fL MCH 30.9 (27.0-32.0) pg MCHC 33.0 (31.0-37.0) g/dL RDW Std Deviation 48.6 (28.0-62.0) fl RDW Coeff of Rena 14 (11.0-15.0) % Plt Count 300 (150-400) K/uL MPV 10.10 (7.40-12.00) fL Neut % (Auto) 59.3 (48.0-80.0) % Lymph % (Auto) 27.7 (16.0-40.0) % Nye % (Auto) 8.9 (0.0-15.0) % Eos % (Auto) 3.7 (0.0-7.0) % Baso % (Auto) 0.4 (0.0-1.5) % Neut # (Auto) 4.1 (1.4-5.7) K/uL Lymph # (Auto) 1.9 (0.6-2.4) K/uL Nye # (Auto) 0.6 (0.0-0.8) K/uL Eos # (Auto) 0.3 (0.0-0.7) K/uL Baso # (Auto) 0.0 (0.0-0.1) K/uL Nucleated RBC % 0.0 /100WBC Nucleated RBCs # 0 K/uL Sodium 142 (136-148) mmol/L Potassium 3.9 (3.5-5.1) mmol/L Chloride 107 (98-107) mmol/L Carbon Dioxide 25.3 (21.0-32.0) mmol/L BUN 8 (7.0-18.0) mg/dL Creatinine 0.9 (0.8-1.3) mg/dL Est Cr Clr Drug Dosing 110.67 mL/min Estimated GFR (MDRD) > 60.0 ml/min Glucose 96 (74-106) mg/dL Calcium 8.6 (8.5-10.1) mg/dL Total Bilirubin (0.2-1.0) mg/dL AST (15-37) IU/L ALT (14-63) IU/L Alkaline Phosphatase (46-116) U/L Troponin I < 0.050 < 0.050 (0.000-0.056) ng/mL Total Protein (6.4-8.2) g/dL Albumin (3.4-5.0) g/dL Globulin (2.6-4.0) g/dL Albumin/Globulin Ratio (0.9-1.6) Urine Color Urine Appearance Urine pH (5.0-8.0) Ur Specific [facility] (1.001-1.035) Urine Protein (NEGATIVE) mg/dL Urine Glucose (UA) (NEGATIVE) mg/dL Urine Ketones (NEGATIVE) mg/dL Urine Occult Blood (NEGATIVE) Urine Nitrite (NEGATIVE) Urine Bilirubin (NEGATIVE) Urine Urobilinogen (<2.0) EU/dL Ur Leukocyte Esterase (NEGATIVE) Urine RBC (0-2/HPF) Urine WBC (0-5/HPF) Ur Epithelial Cells (NONE-FEW) Amorphous Sediment (NEGATIVE) Urine Bacteria (NEGATIVE) Urine Mucus (NONE-MOD) Med Orders - Current: Current Medications Acetaminophen (Tylenol) 650 mg PO Q4H PRN PRN Reason: Pain/Fever Amlodipine Besylate (Norvasc) 5 mg PO DAILY [facility] Last Admin: 11/09/18 08:30 Dose: 5 mg Apixaban (Eliquis) 5 mg PO BID [facility] Last Admin: 11/09/18 08:29 Dose: 5 mg Diltiazem HCl (Diltiazem) 20 mg IVPUSH Q4HR PRN PRN Reason: Arrhythmia Metoprolol Succinate (Toprol Xl) 100 mg PO BID [facility] Last Admin: 11/09/18 08:28 Dose: 100 mg Ondansetron HCl (Zofran) 4 mg IVPUSH Q4H PRN PRN Reason: Nausea/Vomiting Febuxostat 40 Mg 1 each PO DAILY [facility] Last Admin: 11/09/18 08:33 Dose: 1 each Spironolactone (Aldactone) 50 mg PO DAILY [facility] Last Admin: 11/09/18 08:29 Dose: 50 mg Discontinued Medications Aspirin (Aspirin) 81 mg PO DAILY [facility] Diltiazem HCl (Diltiazem) 20 mg IVPUSH ONETIME ONE Stop: 11/08/18 13:42 Last Admin: 11/08/18 13:49 Dose: 20 mg Diltiazem HCl (Diltiazem) 20 mg IVPUSH ONETIME ONE Stop: 11/08/18 15:47 Last Admin: 11/08/18 15:55 Dose: 20 mg Sodium Chloride (Normal Saline) 1,000 mls @ 999 mls/hr IV STAT ONE Stop: 11/08/18 14:41 Last Admin: 11/08/18 13:48 Dose: 999 mls/hr Sodium Chloride (Normal Saline) 1,000 mls @ 999 mls/hr IV STAT ONE Stop: 11/08/18 15:49 Last Admin: 11/08/18 14:53 Dose: 999 mls/hr Metoprolol Succinate (Toprol Xl) 50 mg PO ONETIME ONE Stop: 11/08/18 14:49 Last Admin: 11/08/18 14:54 Dose: 50 mg Metoprolol Succinate (Toprol Xl) 100 mg PO DAILY [facility]
[2018-11-09] MEDS ORDERED: amLODIPine 5 MG Tab PO SCH (09:00)
[2018-11-09] MEDS ORDERED: Metoprolol Succinate 100 MG Tab.ER PO SCH (09:00)
[2018-11-09] MEDS ORDERED: Spironolactone 25 MG Tab PO SCH (09:00)
[2018-11-09] MEDS ORDERED: Aspirin 81 MG Tab.Chew PO SCH (09:00)
== END 2018-11-09 10:30 | disposition home or self-care (01) ==
LOC: MW.ED 13:33 → MW.MS 16:17
PROVIDERS: ADMIT Internal Medicine; ATTEND Internal Medicine
DX: I48.0 Paroxysmal atrial fibrillation (principal); I10 Essential (primary) hypertension; F17.200 Nicotine dependence, unspecified, uncomplicated; M10.9 Gout, unspecified; Z79.82 Long term (current) use of aspirin; Z79.899 Other long term (current) drug therapy
CPT/HCPCS: 36415; 71045; 71045-26; 80048; 80053; 81001; 84484; 85025; 93005; 96361; 96374; 96376; 99284; 99285-25; A9270-GY; G0378; J3490; J7040